=== PATIENT | female | born 1960 | race Caucasian/White ===

== ENCOUNTER 2023-10-01 08:35 | Inpatient (IN) | payer OTHER ==
[~2023-10-01] VITALS: Ht 162.6 cm; Wt 54.5 kg
[2023-10-01] MEDS ORDERED: AMLO2.5T2 PO (08:59)
[2023-10-01] MEDS ORDERED: LISI40TA13 PO (08:59)
[2023-10-01] MEDS ORDERED: ATOR80TA PO (08:59)
[2023-10-01] MEDS ORDERED: HYDR25TA5 PO (08:59)
[2023-10-01 09:23] LABS: BASOPHILS % (AUTO) 0.5 % (0-1); EOSINOPHILS % (AUTO) 0.3 % (0-6); HEMATOCRIT 39.4 % (35.0-45.0); HEMOGLOBIN 13.5 g/dl (12.0-16.0); LYMPHOCYTES % (AUTO) 14.8 % (21-51); MEAN CORPUSCULAR HEMOGLOBIN 33.3 PG (27.0-31.0); MEAN CORPUSCULAR HGB CONC 34.3 g/dL (33.0-36.5); MEAN CORPUSCULAR VOLUME 97.1 FL (78-98); MEAN PLATELET VOLUME 6.1 FL (7.4-10.4); MONOCYTES # (AUTO) 0.7 X10'3 (0-0.9); MONOCYTES % (AUTO) 9.8 % (2-12); NEUTROPHILS # (AUTO) 5.1 X10'3 (1.8-7.7); NEUTROPHILS % (AUTO) 74.6 % (42-75); PLATELET COUNT 326 X10'3 (140-440); RED BLOOD COUNT 4.06 X10'6 (4.20-5.60); RED CELL DISTRIBUTION WIDTH 13.3 % (11.5-14.5); WHITE BLOOD COUNT 6.8 X10'3 (4.5-11.0)
[2023-10-01 09:49] LABS: ALBUMIN 3.9 G/DL (3.4-5.0); ANION GAP 10 (8-16); BLOOD UREA NITROGEN 3 MG/DL (7-18); CALCIUM 8.8 MG/DL (8.5-10.1); CHLORIDE 90 MMOL/L (99-107); GLUCOSE 119 MG/DL (70-104); POTASSIUM 3.3 MMOL/L (3.5-5.1); PRO BRAIN NATRIURETIC PEPTIDE 39 PG/ML (0-125); SODIUM 125 MMOL/L (135-145); TOTAL CARBON DIOXIDE 25.2 MMOL/L (24-32); eCRCL 98 ML/MIN; eGFR > 90 ML/MIN
[2023-10-01] MEDS: ringers solution, lacted 1,000 ML IV ONE (10:06)
[2023-10-01] MEDS: aspirin 81mg tab.chew PO ONE (11:55)
[2023-10-01 12:39] LABS: ALANINE AMINOTRANSFERASE 44 U/L (12-78); ALBUMIN/GLOBULIN RATIO 1.1 (1.1-1.5); ALKALINE PHOSPHATASE 89 IU/L (46-116); ASPARTATE AMINO TRANSFERASE 28 U/L (10-37); BILIRUBIN,TOTAL 0.7 MG/DL (0.1-1.0); TOTAL PROTEIN 7.5 G/DL (6.4-8.2)
[2023-10-01] MEDS ORDERED: magnesium hydroxide 30ml (MOM) UD suspension PO PRN (14:10)
[2023-10-01] MEDS ORDERED: ondansetron/PF 4mg/2ml inj IV PRN (14:10)
[2023-10-01] MEDS ORDERED: mag hydrox/Alum hydrox/simeth 30ml oral suspension PO PRN (14:10)
[2023-10-01] MEDS ORDERED: magnesium Cl slow-release 64mg tablet PO PRN (14:10)
[2023-10-01] MEDS ORDERED: acetaminophen 325mg tablet PO PRN (14:10)
[2023-10-01 14:42] LABS: MAGNESIUM 1.7 MG/DL (1.5-2.4); PHOSPHORUS 3.4 MG/DL (2.3-4.5)
[2023-10-01 14:52] LABS: HEMOGLOBIN A1C 5.7 % (4.5-6.2)
[2023-10-01] MEDS: normal saline 1000ml 1,000 ML IV SCH (15:35)
[2023-10-01 16:51] LABS: BILIRUBIN,URINE NEGATIVE (Neg); CLARITY,URINE SLIGHTLY CLOUDY (Clear); COLOR,URINE STRAW (Yellow); GLUCOSE, URINE NEGATIVE (Neg); KETONES,URINE NEGATIVE (Neg); LEUKOCYTE ESTERASE ,URINE SMALL (Neg); NITRITES, URINE NEGATIVE (Neg); OCCULT BLOOD,URINE TRACE-INTACT (Neg); PROTEIN,URINE NEGATIVE (Neg)
[2023-10-01 16:54] LABS: UA COLLECTION TYPE CLN CATCH MIDSTREAM
[2023-10-01 16:59] LABS: BACTERIA,URINE FEW /HPF (Neg); RBC,URINE 0-2 /HPF (0-2); WBC,URINE 0-4 /HPF (0-4)
[2023-10-01 17:00] LABS: SQUAMOUS EPITHELIAL CELL,UR FEW /LPF (FEW)
[2023-10-01 17:13] LABS: THYROID STIMULATING HORMONE 0.54 ulU/ml (0.34-4.50)
[2023-10-01 18:19] LABS: URINE AMPHETAMINE SCREEN NEGATIVE (Neg); URINE BARBITUATE SCREEN NEGATIVE (Neg); URINE BENZODIAZEPINES SCREEN NEGATIVE (Neg); URINE CANNABINOID SCREEN NEGATIVE (Neg); URINE COCAINE SCREEN NEGATIVE (Neg); URINE METHADONE SCREEN NEGATIVE (Neg); URINE OPIATE SCREEN NEGATIVE (Neg); URINE PHENCYCLIDINE SCREEN NEGATIVE (Neg)
[2023-10-01] MEDS: potassium Cl 20 mEq SR tablet PO PRN ×2 (18:37→21:02)
[2023-10-01 19:00] VITALS: BP 106/68; PULSE 65; RESP 18; TEMP 98.5; O2SAT 98
[2023-10-01 20:00] VITALS: BP_SYST 100; BP_SYST 115; BP_SYST 98; BP_DIAS 65; BP_DIAS 71; BP_DIAS 74; PULSE 63; PULSE 71; PULSE 77; RESP 18; O2SAT 98
[2023-10-01 20:00] LABS: OSMOLALITY UA 188 MOSM/K (50-1400)
[2023-10-01 20:00] LABS: OSMOLALITY 271 MOSM/K (280-300)
[2023-10-01 20:07] LABS: SODIUM,URINE RANDOM 69 MEQ/L
[2023-10-01 20:10] LABS: ALBUMIN 3.5 G/DL (3.4-5.0); ANION GAP 4 (8-16); BLOOD UREA NITROGEN 4 MG/DL (7-18); BUN/CREATININE RATIO 6.9 (10.0-20.0); CALCIUM 8.9 MG/DL (8.5-10.1); CHLORIDE 96 MMOL/L (99-107); CREATININE 0.58 MG/DL (0.40-0.90); GLUCOSE 107 MG/DL (70-104); SODIUM 130 MMOL/L (135-145); TOTAL CARBON DIOXIDE 29.6 MMOL/L (24-32); eCRCL 84 ML/MIN; eGFR > 90 ML/MIN
[2023-10-01 20:23] LABS: POTASSIUM 2.9 MMOL/L (3.5-5.1)
[2023-10-01] MEDS: lisinopril 20mg tablet PO SCH (20:56)
[2023-10-01] MEDS: enoxaparin 40mg/0.4ml syringe SUBCUT SCH (21:02)
[2023-10-01] MEDS: atorvastatin 20mg tablet PO SCH (21:02)
[2023-10-01] MEDS: docusate sod 100mg capsule PO SCH (21:02)
[2023-10-01 22:00] VITALS: BP 97/58; PULSE 62; RESP 17; TEMP 97.1; O2SAT 97
[2023-10-02 02:00] VITALS: BP 111/62; PULSE 63; RESP 17; TEMP 97.2; O2SAT 97
[2023-10-02 06:15] LABS: BASOPHILS % (AUTO) 0.9 % (0-1); EOSINOPHILS % (AUTO) 0.8 % (0-6); HEMATOCRIT 36.9 % (35.0-45.0); HEMOGLOBIN 12.7 g/dl (12.0-16.0); LYMPHOCYTES # (AUTO) 1.4 X10'3 (1.1-4.8); LYMPHOCYTES % (AUTO) 34.6 % (21-51); MEAN CORPUSCULAR HEMOGLOBIN 33.6 PG (27.0-31.0); MEAN CORPUSCULAR HGB CONC 34.3 g/dL (33.0-36.5); MEAN CORPUSCULAR VOLUME 98.1 FL (78-98); MEAN PLATELET VOLUME 6.3 FL (7.4-10.4); MONOCYTES # (AUTO) 0.5 X10'3 (0-0.9); MONOCYTES % (AUTO) 13.6 % (2-12); NEUTROPHILS % (AUTO) 50.1 % (42-75); PLATELET COUNT 320 X10'3 (140-440); RED BLOOD COUNT 3.76 X10'6 (4.20-5.60); RED CELL DISTRIBUTION WIDTH 13.3 % (11.5-14.5)
[2023-10-02 06:21] LABS: APTT 30 SECONDS (22-32); PROTHROMBIN TIME 10.8 SECONDS (9.0-12.0)
[2023-10-02 06:22] LABS: ALBUMIN 3.2 G/DL (3.4-5.0); ANION GAP 9 (8-16); BLOOD UREA NITROGEN 3 MG/DL (7-18); BUN/CREATININE RATIO 5.8 (10.0-20.0); CALCIUM 8.5 MG/DL (8.5-10.1); CHLORIDE 101 MMOL/L (99-107); CHOL/HDL RATIO 1.9 (0.00-4.99); CHOLESTEROL 148 MG/DL (0-200); CREATININE 0.52 MG/DL (0.40-0.90); GLUCOSE 99 MG/DL (70-104); HDL CHOLESTEROL 77 MG/DL (35-60); LDL CHOLESTEROL 61 MG/DL (50-100); MAGNESIUM 1.7 MG/DL (1.5-2.4); POTASSIUM 4.4 MMOL/L (3.5-5.1); SODIUM 134 MMOL/L (135-145); TOTAL CARBON DIOXIDE 24.4 MMOL/L (24-32); TRIGLYCERIDES 36 MG/DL (20-135); eCRCL 94 ML/MIN; eGFR > 90 ML/MIN
[2023-10-02 07:00] VITALS: BP 121/72; PULSE 63; RESP 17; TEMP 98.4; O2SAT 94
[2023-10-02 08:00] VITALS: BP_SYST 102; BP_SYST 108; BP_SYST 99; BP_DIAS 61; BP_DIAS 65; BP_DIAS 68; PULSE 75; PULSE 87; PULSE 90
[2023-10-02] MEDS: amLODIPine 2.5mg tablet PO SCH (08:22)
[2023-10-02 11:00] VITALS: BP 108/61; PULSE 75; RESP 18; TEMP 98.2; O2SAT 96
[2023-10-02] MEDS ORDERED: LISI10TA27 PO (13:24)
[2023-10-02] MEDS ORDERED: lisinopril 20mg tablet PO SCH (21:00)
== END 2023-10-02 16:26 | disposition home or self-care (01) | DRG 640 ==
LOC: ER 08:36 → ED HOLD 14:16 → PCU 3S 18:30
PROVIDERS: ADMIT Internal Medicine; ATTEND Internal Medicine
PROC: 4A00X4Z Measurement of Central Nervous Electrical Activity, External Approach (ICD-10-PCS; principal; 2023-10-02)
DX: E86.0 Dehydration (principal); I21.A1 Myocardial infarction type 2; E87.1 Hypo-osmolality and hyponatremia; F17.210 Nicotine dependence, cigarettes, uncomplicated; E87.6 Hypokalemia; Z88.8 Allergy status to other drugs, medicaments and biological substances; Z79.899 Other long term (current) drug therapy; R55 Syncope and collapse
CPT/HCPCS: 36415; 70450; 71045; 72125; 72131; 80048; 80053; 80061; 80305; 81001; 83036; 83735; 83880; 83930; 83935; 84100; 84300; 84443; 84484; 85025; 85610; 85730; 87081; 87088; 93005; 93308; 95816; 97116; 97530; 99285; A6258; G0378; J1650; J7030; J7120